=== PATIENT | male | born 2000 | race Caucasian/White ===

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

== ENCOUNTER 2024-01-02 19:47 | Emergency (ER) | payer OTHER, SELFPAY ==
[~2024-01-02] VITALS: Ht 182.9 cm; Wt 95.5 kg
[2024-01-02 20:45] LABS: BASO # 0.1 10^3/uL (0.0-0.2); BASO % 0.6 % (0.0-1.0); EOS # 0.2 10^3/uL (0.0-0.5); EOS % 2.8 % (0.0-3.0); HEMATOCRIT 39.8 % (42.0-52.0); HEMOGLOBIN 13.9 g/dl (13.5-17.5); LYMPH # 2.8 10^3/uL (1.5-5.0); LYMPH % 34.8 % (24.0-44.0); MEAN CORPUSCULAR HEMOGLOBIN 30.7 pg (27.0-33.0); MEAN CORPUSCULAR HGB CONC 34.9 g/dl (32.0-36.5); MEAN CORPUSCULAR VOLUME 87.9 fl (80.0-96.0); MONO # 0.7 10^3/uL (0.0-0.8); MONO % 8.7 % (2.0-8.0); NEUTROPHILS # 4.2 10^3/uL (1.5-8.5); PLATELET COUNT, AUTOMATED 196 10^3/uL (150-450); RED BLOOD COUNT 4.53 10^6/uL (4.30-6.10); WHITE BLOOD COUNT 7.9 10^3/uL (4.0-10.0)
[2024-01-02 21:04] LABS: CK-MB VALUE MASS 1.3 NG/ML (<3.6)
[2024-01-02 21:05] LABS: BLOOD UREA NITROGEN 15 MG/DL (9-23); CALCIUM LEVEL 9.2 MG/DL (8.5-10.1); CARBON DIOXIDE LEVEL 23 MMOL/L (20-31); CHLORIDE LEVEL 107 MMOL/L (98-107); CREATININE FOR GFR 1.19 MG/DL (0.70-1.30); GLOMERULAR FILTRATION RATE > 60.0 (>60); GLUCOSE, FASTING 103 MG/DL (60-100); POTASSIUM SERUM 3.9 MMOL/L (3.5-5.1); SODIUM LEVEL 140 MMOL/L (136-145)
[2024-01-02 21:19] LABS: CPK CREATINE PHOSPHOKINASE 311 U/L (46-171); MB/CK RELATIVE INDEX 0.41 (< OR =4)
[2024-01-02] MEDS: MORPHINE 4 MG/ML 1ML VIAL IV ONE (21:30)
[2024-01-02] MEDS ORDERED: ISOVUE-370 76% 100ML VIAL As Ordered ONE (21:39)
[2024-01-02 22:23] LABS: LIPASE 23 U/L (12-53)
[2024-01-02 22:25] LABS: ALBUMIN 4.5 G/DL (3.2-5.2); ALKALINE PHOSPHATASE 89 U/L (46-116); ALT/SGPT 22 U/L (7.0-40); AST/SGOT 29 U/L (<34); BILIRUBIN,DIRECT 0.2 MG/DL (<0.4); BILIRUBIN,TOTAL 0.5 MG/DL (0.3-1.2); CK-MB VALUE MASS 1.3 NG/ML (<3.6); TOTAL PROTEIN 7.1 G/DL (5.7-8.2)
[2024-01-02 22:26] LABS: CPK CREATINE PHOSPHOKINASE 308 U/L (46-171); MB/CK RELATIVE INDEX 0.42 (< OR =4)
[2024-01-02 22:31] VITALS: TEMP 98.2
[2024-01-02 22:46] VITALS: BP 118/65; O2SAT 100
== END 2024-01-02 23:04 | disposition home or self-care (01) ==
LOC: M ED 19:47
DX: M54.6 Pain in thoracic spine (principal); M54.50 Low back pain, unspecified
CPT/HCPCS: 36415; 71046; 71275; 72128; 72131; 74177; 80048; 80076; 82550; 82553; 83690; 84484; 85025; 93005; 93041; 94760; 99285; Q9967

== ENCOUNTER → 2024-11-23 | Outpatient (CLI) | payer OTHER | LOC: M RAD 11:16 | PROVIDERS: ATTEND Physician Assistant | DX: S69.92XA Unspecified injury of left wrist, hand and finger(s), initial encounter (principal) ==